=== PATIENT | male | born 1985 | race African-American/Black ===

== ENCOUNTER 2017-09-12 22:14 | Emergency (ER) | payer OTHER ==
[~2017-09-12] VITALS: Ht 193 cm; Wt 111.0 kg
[2017-09-12 22:15] VITALS: BP 137/85; PULSE 75; RESP 18; TEMP 99; O2SAT 98
--- NOTE | 2017-09-12 23:35 | PD ---
HPI Chief Complaint: Injury Time Seen by Provider: 23:25 Travel History International Travel<30 days: No Contact w/Intl Traveler<30days: No Traveled to known affect area: No History of Present Illness HPI [id number] male presents for evaluation of right third finger pain. He reports that prior to arrival he tripped on a dock and fell, striking his right hand against the ground. He now has pain to the shaft of the right third finger and inability to extend at the DIP joint of the right third finger. Symptoms are mild, aggravated by hand trauma. Denies any open wounds, bruising or soft tissue swelling. He has no other complaints. [facility] Past Medical History Medical History: Denies Significant Hx Diminished Hearing: No Tetanus Vaccination: Unknown Influenza Vaccination: No Past Surgical History Surgical History: No Previous Surgery Social History Alcohol Use: No Tobacco Use: No Substance Use: No Allergies-Medications (Allergen,Severity, Reaction): Coded Allergies: No Known Allergies (Unverified , 09/12/17) Reported Meds & Prescriptions Reported Meds & Active Scripts Active No Active Prescriptions or Reported Medications Review of Systems Musculoskeletal: Positive: Limited ROM, Pain Skin: Positive Other (denies open wounds) Physical Exam Narrative GENERAL: Well-developed well-nourished male in no acute distress SKIN: Warm and dry. HEAD: Atraumatic. Normocephalic. EYES: Pupils equal and round. No scleral icterus. No injection or drainage. ENT: No nasal bleeding or discharge. Mucous membranes pink and moist. NECK: Trachea midline. No JVD. CARDIOVASCULAR: Regular rate and rhythm. No murmur appreciated. RESPIRATORY: No accessory muscle use. Clear to auscultation. Breath sounds equal bilaterally. MUSCULOSKELETAL: Some tenderness to palpation of this to right third finger. The patient is unable to extend his right third finger at the DIP joint in a mallet deformity fashion. Passively extension is possible. Capillary refills less than 2 seconds. Distal sensation is preserved. NEUROLOGICAL: Awake and alert. No obvious cranial nerve deficits. Motor grossly within normal limits. Normal speech. Data Data Last Documented VS Vital Signs Date Time Temp Pulse Resp B/P (MAP) Pulse Ox O2 Delivery O2 Flow Rate FiO2 09/12/17 22:15 99.0 75 18 137/85 (102) 98 Orders Orders Finger ([id number]) (09/12/17 ) Splint Or Brace Apply/Monitor (09/13/17 00:24) Ed Discharge Order (09/13/17 00:24) [facility] Medical Decision Making Medical Screen Exam Complete: Yes Emergency Medical Condition: Yes Medical Record Reviewed: Yes Differential Diagnosis Mallet finger, jersey finger, avulsion fracture, finger dislocation Narrative Course X-ray imaging will be obtained. X-ray imaging is negative. The patient appears to have a mallet finger. His DIP joint will be splinted in full extension. Discussed the importance of maintaining immobilization, outpatient follow-up with hand surgery. Diagnosis Primary Impression: Mallet finger Qualified Codes: M20.011 - Mallet finger of right finger(s) Referrals: Eulalio Morales MD Additional Instructions: Do not remove the splint at any time. Follow-up with a hand surgeon such as Dr. Morales, call to make an appointment. Return for any emergent medical conditions. Med/Other Pt SpecificInfo: No Change to Meds Scripts No Active Prescriptions or Reported Meds Disposition: 01 DISCHARGE HOME Condition: Stable Ned Romero Sep 12, 2017 23:35
--- NOTE | 2017-09-13 00:07 | RADRPT ---
EXAM DATE/TIME: 09/12/2017 23:45 [place] COMPARISON: No previous studies available for comparison. INDICATIONS : Right hand, third digit pain after fall. MEDICAL HISTORY : None. SURGICAL HISTORY : None. ENCOUNTER: Initial ACUITY: 1 day PAIN SCORE: 6/10 LOCATION: Right hand, distal third digit. FINDINGS: Examination of the third digit of the right hand demonstrates no evidence of fracture or dislocation. No radiopaque foreign bodies are seen. The soft tissues are intact. CONCLUSION: Negative trauma study. Quinn Brewer MD on September 13, 2017 at 0:04 Board Certified Radiologist. This report was verified electronically.
== END 2017-09-13 01:30 | disposition home or self-care (01) ==
LOC: NEPD 22:14
DX: M20.011 Mallet finger of right finger(s) (principal)
CPT/HCPCS: 73140; 99283